=== PATIENT | female | born 1955 | race Caucasian/White ===

== ENCOUNTER 2023-03-16 14:57 | Outpatient (CLI) | payer BC, SELFPAY ==
--- NOTE | 2023-03-16 15:00 | CRLHL7_ITS ---
For Patients: As a result of the Cures Act, medical imaging exams and procedure reports are released immediately into your electronic medical record. You may view this report before your referring provider. If you have questions, please contact your health care provider. INDICATION: Pain TECHNIQUE: Thoracic spine 2 view. COMPARISON: None FINDINGS: Bones: Alignment is normal. No fractures or significant bone lesions. Joints: Multilevel degenerative changes with chronic appearing compression deformity mid thoracic spine. Soft tissues: Unremarkable. IMPRESSION: Two-level degenerative changes with chronic appearing compression deformity mid thoracic spine. Dictated by Charlie Sanchez MD @ 03/16/2023 7:10:21 PM (Electronically Signed)
--- NOTE | 2023-03-16 15:00 | CRLHL7_ITS ---
For Patients: As a result of the Century Cures Act, medical imaging exams and procedure reports are released immediately into your electronic medical record. You may view this report before your referring provider. If you have questions, please contact your health care provider. INDICATION: neck pain, unresponsive to chiropractic treatment TECHNIQUE: Cervical spine 3 view. COMPARISON: None FINDINGS: Reversal of the normal cervical lordosis centered at C4-5. The odontoid is intact. Normal C1-2 relationship. Prevertebral soft tissues are normal. Slight anterolisthesis of C4 on C5 with slight offset of the C4-5 facet joints in relation to the other levels. Disc space narrowing and spurring at C5-6. No compression fracture. IMPRESSION: Reversal of the cervical lordosis and mild degenerative disc disease C4-5 and C5-6. No compression fracture. Slight anterolisthesis of C4 on C5 with slight offset of the C4-5 facet joint, likely related to facet degeneration although cannot exclude unilateral jumped facet and CT cervical spine recommended. Dictated by Charlie Schmid MD @ 03/17/2023 6:20:12 AM (Electronically Signed)
== END 2023-03-16 14:58 | disposition home or self-care (01) ==
LOC: RAD 15:01
PROVIDERS: PCP Student in an Organized Health Care Education/Training Program; Visit Provider Chiropractor
DX: M54.2 Cervicalgia (principal); M40.40 Postural lordosis, site unspecified
CPT/HCPCS: 72040; 72070

== ENCOUNTER 2024-07-26 09:10 | Outpatient (CLI) | payer BC, SELFPAY ==
--- NOTE | 2024-07-26 10:17 | W.ANESCHARGE ---
Anesthesia Charges Start Date/Time Anesthesia Start Date: 07/26/24 Anesthesia Start Time: 09:45 Stop Date/Time Anesthesia Stop Date: 07/26/24 Anesthesia Stop Time: 10:08
--- NOTE | 2024-07-26 10:34 | W.ANESCHARGE ---
Anesthesia Charges Start Date/Time Anesthesia Start Date: 07/26/24 Anesthesia Start Time: 09:45 Stop Date/Time Anesthesia Stop Date: 07/26/24 Anesthesia Stop Time: 10:08
== END 2024-07-26 09:11 | disposition home or self-care (01) ==
LOC: OP CLINIC 09:13
PROVIDERS: PCP Student in an Organized Health Care Education/Training Program; Visit Provider Internal Medicine Gastroenterology
DX: Z12.11 Encounter for screening for malignant neoplasm of colon (principal); Q43.8 Other specified congenital malformations of intestine
CPT/HCPCS: 00811; 00812; 45378; J2704